=== PATIENT | male | born 2000 | race Caucasian/White ===

== ENCOUNTER → 2024-12-03 | Outpatient (CLI) | payer OTHER | END | disposition home or self-care (01) | LOC: MSR 08:49 | PROVIDERS: ATTEND Chiropractor | DX: R07.9 Chest pain, unspecified (principal); R00.2 Palpitations; E55.9 Vitamin D deficiency, unspecified; R06.00 Dyspnea, unspecified | CPT/HCPCS: 71046; 82306; 93005 ==